=== PATIENT | female | born 1995 | race African-American/Black ===

== ENCOUNTER 2017-04-19 22:21 | Emergency (ER) | payer MEDICAID, OTHER ==
[2017-04-19 22:43] LABS: Bilirubin Negative (Negative); Blood, Urine Negative (Negative); Glucose, Urine (Dipstick) Negative (Negative); Ketone, Urine Negative (Negative); Nitrite Negative (Negative); Protein, Urine (Dipstick) Negative (Neg-Trace)
[2017-04-19 22:44] LABS: Bacteria/HPF Rare-Few HPF (None Seen); Hyaline Casts/LPF 4-6 HYALINE CAST LPF (0-3 Hyaline); RBC/HPF 0-3 HPF (0-3); Squamous Epithelial 0-3 HPF (0-3)
--- NOTE | 2017-04-19 23:45 | ULT ---
LIMITED OB ULTRASOUND: 04/19/17 HISTORY: Vaginal spotting. FINDINGS: A single live intrauterine gestation is seen with measurements corresponding to an estimated gestati onal age of 16 weeks, 4 days and GEOFFREY at 09/30/17. Estimated weight measures 157 grams or 6 oz. BIOMETRY: BPD 3.41 cm 16 weeks, 4 days HC 12.82 cm 16 weeks, 4 days AC 10.57 cm 16 weeks, 4 days FL 2.14 cm 16 weeks, 3 days The cervical length measures 3.7 cm. heart rate measures 147 bpm. Placenta is posteriorly loca caitie without evidence of placenta previa. Amniotic fluid is within normal limits. There is a fibroid versus uterine contraction in the mid uterus. The amnion is not completely fused. IMPRESSION: Single live IUP of 16 weeks, 4 days estimated gestational age and GEOFFREY at 09/30/17. POS: [facility]
== END 2017-04-19 23:43 | disposition home or self-care (01) ==
LOC: ERS 22:21
DX: O20.0 Threatened abortion (principal); O23.42 Unspecified infection of urinary tract in pregnancy, second trimester; O99.342 Other mental disorders complicating pregnancy, second trimester; F41.9 Anxiety disorder, unspecified; Z3A.16 16 weeks gestation of pregnancy
CPT/HCPCS: 76815; 81003; 81015

== ENCOUNTER 2018-12-26 11:03 | Outpatient (CLI) | payer OTHER ==
--- NOTE | 2018-12-26 11:44 | ULT ---
EXAM: Pelvic ultrasound HISTORY: Positive chest. Evaluate dates. COMPARISON: None TECHNIQUE: Multiple grayscale and color Doppler images were obtained in a transabdominal and transvag inal pelvic ultrasound. Spectral analysis of the Doppler waveforms of the ovaries were performed. FINDINGS: UTERUS: There is an intrauterine gestational sac. This has a mean sac diameter of 1.94 cm which estim ates gestational age at 6 weeks 6 days. No yolk sac and pole are visualized at this time. No evidence of subchorionic hemorrhage. No free fluid is seen in the pelvis. RIGHT OVARY: Normal flow without focal mass. LEFT OVARY: Normal flow without focal mass. IMPRESSION: Gestational sac with estimated age of 6 weeks 6 days. Please note that no pole or y olk sac is seen at this time. This could potentially represent a blighted ovum. Correlate with hCG values.
== END 2018-12-26 11:04 | disposition home or self-care (01) ==
LOC: SCSULT 11:03
PROVIDERS: ATTEND Nurse Practitioner
DX: Z34.81 Encounter for supervision of other normal pregnancy, first trimester (principal)
CPT/HCPCS: 76856

== ENCOUNTER 2019-01-05 23:26 | Emergency (ER) | payer OTHER ==
[2019-01-05 23:52] LABS: #Basophils 0.1 thou/uL (0.0-0.2); #Eosinphils 0.1 thou/uL (0.0-0.7); #Lymphocytes 2.9 thou/uL (1.20-3.40); #Monocytes 0.4 thou/uL (0.11-0.59); %Basophils 0.8 % (0.0-1.0); %Eosinophils 0.8 % (0.0-10.0); %Lymphocytes 39.6 % (21.0-51.0); %Monocytes 5.6 % (0.0-10.0); %Neutrophils 53.2 % (42.0-75.0); Hemoglobin 12.3 g/dL (12.0-16.0); Mean Corpuscular HGB CONC 31.8 g/dL (32.0-36.0); Mean Corpuscular Hemoglobin 26.6 pg (27.0-31.0); Mean Corpuscular Volume 83.8 fL (78.0-98.0); Mean Platelet Volume 8.5 fL (7.4-10.4); Platelet Count 245 thou/uL (130-400); RBC Distribution Width 13.4 % (11.5-14.5); Red Blood Cell (RBC) Count 4.63 mill/uL (4.20-5.40); White Blood Cell (WBC) Count 7.4 thou/uL (4.8-10.8)
[2019-01-06] MEDS ORDERED: Acetaminophen 500 MG TAB ONE (01:30)
--- NOTE | 2019-01-06 07:41 | ULT ---
PRELIMINARY REPORT/[facility]/EMERGENCY AFTER HOURS PROCEDURE: EXAM: US First Trimester, Transabdominal and US , Transvaginal EXAM DATE/TIME: 01/06/2019 12:06 AM CLINICAL HISTORY: 23 years old, female; Lmp or gestational age (in weeks): 6w6d; Antepartum complications; Bleeding and other: Heavy bleeding with clots; complicated by abdominal or pelvic pain; Lower; First tr imester; Gestational age or lmp: Lmp 10/23/18; ; Patient HX: Pelvic pain, with heavy vag bleed ing with clots; Additional info: Ob Dr gutiérrez blighted ovum TECHNIQUE: Imaging protocol: Real-time transabdominal obstetrical ultrasound of the maternal pelvis and a first trimester , less than 14 weeks 0 days, with image documentation. Transvaginal imaging was us ed for better evaluation of the fetus and adnexa. COMPARISON: No relevant prior studies available. FINDINGS: There is an apparent intrauterine gestational sac, measuring 28 x 7 x 20 mm. Mean sac diameter of about 18 mm would correspond with gestational age of about 6-1/2 weeks. No definite yolk sac, pole or heart activity identified at this time. These findings are usually seen by 5 1/2 to 6 weeks gestation. Therefore, it is possible/likely that this appearance represents a blighted ovum/anembryonic gestatio n. However, non-viability or blighted ovum/anembryonic gestation cannot be definitively diagnosed on a s judie exam unless the mean gestational sac diameter is 25 mm or greater, without a pole. Therefore, viability cannot definitely be confirmed or excluded at this time. If there is further question of viability, follow up exam in several days could be helpful. An occult ectopic with a pseudo sac in the uterus is felt significantly less likely, althou gh not yet completely excluded. Appropriate clinical follow up is needed. Probable small subchorionic hematoma, measuring 9 x 5 mm. Very small amount of cul-de-sac fluid. Small cyst in the right ovary, measuring about 14 mm, possibly corpus luteum. Blood flow detected in the right ovary. Left ovary not identified at this time. Maternal ovaries/adnexa otherwise appear essentially unremarkable. The urinary bladder was not completely evaluated/imaged at this time. Endovaginal scanning provided better visualization/evaluation of the gestational sac and contents, as discussed above. IMPRESSION: 1. Probable early intrauterine gestational sac, no definite pole identified at this time. See d etails above. 2. Followup may be helpful depending on clinical indications, see above discussion 3. Other details discussed above. Thank you for allowing us to participate in the care of your patient. Dictated and Authenticated by: Nathan Chavez MD 01/06/2019 1:59 AM Central Time ([place] & [place]) FINAL REPORT EMERGENCY AFTER HOURS PELVIC ULTRASOUND: Date: 01/06/19 FINDINGS/IMPRESSION: I agree with the findings and impression given in the preliminary report per [facility] physician. There is likely an early intrauterine gestational sac. No pole or yolk sac is seen at this time, which may be secondary to a very early . A blighted ovum is also a possibility. Recommend followin g HCG levels. POS: [facility]
== END 2019-01-06 02:41 | disposition home or self-care (01) ==
LOC: ERS 23:26
DX: O20.0 Threatened abortion (principal); O99.341 Other mental disorders complicating pregnancy, first trimester; F41.9 Anxiety disorder, unspecified; Z3A.10 10 weeks gestation of pregnancy
CPT/HCPCS: 36415; 76856; 84702; 85025; 86900; 86901

== ENCOUNTER 2019-01-10 00:25 | Emergency (ER) | payer OTHER ==
[2019-01-10 01:23] LABS: #Basophils 0.1 thou/uL (0.0-0.2); #Eosinphils 0.1 thou/uL (0.0-0.7); #Lymphocytes 2.6 thou/uL (1.20-3.40); #Monocytes 0.3 thou/uL (0.11-0.59); #Neutrophils 3.5 thou/uL (1.40-6.50); %Basophils 0.8 % (0.0-1.0); %Eosinophils 1.2 % (0.0-10.0); %Monocytes 4.9 % (0.0-10.0); %Neutrophils 53.1 % (42.0-75.0); Hemoglobin 11.9 g/dL (12.0-16.0); Mean Corpuscular HGB CONC 31.7 g/dL (32.0-36.0); Mean Corpuscular Hemoglobin 26.9 pg (27.0-31.0); Mean Corpuscular Volume 84.6 fL (78.0-98.0); Mean Platelet Volume 8.1 fL (7.4-10.4); Platelet Count 265 thou/uL (130-400); RBC Distribution Width 13.4 % (11.5-14.5); Red Blood Cell (RBC) Count 4.44 mill/uL (4.20-5.40); White Blood Cell (WBC) Count 6.5 thou/uL (4.8-10.8)
[2019-01-10 02:55] LABS: Bilirubin Negative (Negative); Blood, Urine Negative (Negative); Clarity CLEAR (Clear); Glucose, Urine (Dipstick) Negative (Negative); Leukocyte Negative (Negative); Nitrite Negative (Negative); Protein, Urine (Dipstick) Negative (Neg-Trace)
[2019-01-10] MEDS ORDERED: Acetaminophen 325 MG TAB ONE (05:21)
[2019-01-11 16:44] LABS: Chlamydia by PCR Not Detected (NotDetected); GC by PCR Not Detected (NotDetected)
== END 2019-01-10 05:59 | disposition home or self-care (01) ==
LOC: ERS 00:25
DX: O03.4 Incomplete spontaneous abortion without complication (principal); O99.341 Other mental disorders complicating pregnancy, first trimester; Z3A.10 10 weeks gestation of pregnancy
CPT/HCPCS: 36415; 51701; 76856; 81003; 84702; 85025; 86850; 86900; 86901; 87480; 87491; 87510; 87591; 87660; 88233; 88262; 88291; 88305; 96360; 96361; A4353

== ENCOUNTER 2019-02-20 10:16 | Outpatient (CLI) | payer OTHER ==
--- NOTE | 2019-02-20 10:57 | RAD ---
XR Chest Pa Lat STANDARD HISTORY: Complete and partial molar COMPARISON: 04/07/2015 FINDINGS: The heart size is normal. The lungs are well expanded without focal areas of consolidation, pneumothorax or pleural effusions. IMPRESSION: No radiographic evidence of acute cardiopulmonary process.
== END 2019-02-20 10:17 | disposition home or self-care (01) ==
LOC: BICRAD 10:16
PROVIDERS: ATTEND Obstetrics & Gynecology
DX: O01.1 Incomplete and partial hydatidiform mole (principal)
CPT/HCPCS: 71046; 84443; 84702

== ENCOUNTER 2019-11-10 14:18 | Outpatient (CLI) | payer OTHER ==
--- NOTE | 2019-11-10 15:24 | ULT ---
OB ULTRASOUND: 11/10/19 HISTORY: anatomy. FINDINGS: A single live intrauterine gestation is seen with measurements corresponding to an estimated gestatio nal age of 20 weeks, 3 days and GEOFFREY at 03/26/20. The estimated weight measures 354 grams of 13 o unces. measurements are as follows: BPD 4.70cm 20 weeks, 2 days HC 17.13 cm 19 weeks, 6 days AC 14.69 cm 20 weeks, 0 days FL 3.54 cm 21 weeks, 2 days heart rate measures 146 beats per minute. Placenta is posteriorly located without evidence of p lacenta previa. MARYCARMEN measures 12.3 cm. Cervical length measures 4.4 cm. A three vessel cord, cord inse rtion, kidneys, bladder, stomach, four chamber heart, lateral ventricles, cerebellum, spine, li ps/nose, upper and lower extremities are visualized. No definite anomalies are seen. IMPRESSION: Single live IUP of 20 weeks, 3 days estimated gestational age and 03/26/2020. POS: [facility]
== END 2019-11-10 14:19 | disposition home or self-care (01) ==
LOC: BICULT 14:18
PROVIDERS: ATTEND Family Medicine
DX: O09.892 Supervision of other high risk pregnancies, second trimester (principal); Z3A.20 20 weeks gestation of pregnancy
CPT/HCPCS: 76805

== ENCOUNTER 2020-02-15 16:09 | Day surgery (SDC) | payer OTHER ==
[2020-02-15 17:20] VITALS: BMI 41.0
[2020-02-15] MEDS ORDERED: hydrALAZINE 20 MG/ML VIAL SLOW IVP PRN (17:59)
--- NOTE | 2020-02-15 18:02 | PDOC.LDHP ---
Labor and Delivery H&P Chief complaint: contractions HPI: 25 y/o at 34w1d, patient of Dr. Monson, presents with ctx and spotting. She reports that starting at 0500 she started having consistent ctx but has not been timing them. She had an episode of spotting when she wiped first thing this am but resolved. Denies heavy VB, LOF, or decreased FM. ROS neg for HEENT, cv, pulm, gi, gu, neuro, psych, skin, musculoskeletal or constitutional symptoms other than mentioned above. OB History Details: 4 prior TSVD Current complications: none Past Medical History: None Current medications: pre- vitamins Previous surgical history: none Allergies/Adverse Reactions: Allergies Allergy/AdvReac Type Severity Reaction Status Date / Time No Known Allergies Allergy Unverified 02/15/20 17:13 Social history: none - Physical Exam Vital signs reviewed and normal: yes General: NAD, resting Lungs: nonlabored breathing Abdomen: gravid Extremeties: no edema FHT: category 1 (130s, mod variability, + accels, subtle late decels when first on monitor - improved with repositioning.) Rowe contractions every: irregular - Vaginal Exam cm dilated: 0 (Unchanged after 3 hours on monitor) Effacement: 0% Station: -3 - Assessment 25 y/o at 34w1d with no e/o PTL. No bleeding on exam. status reassuring with reactive NST. - Plan -: D/c home with precautions. Given 1 dose morphine for pain to help relax at home. Advised to stay hydrated and keep all appointments.
[2020-02-15] MEDS ORDERED: Morphine 4 MG/ML VIAL IM SCH (19:15)
== END 2020-02-15 19:20 | disposition home health service (06) ==
LOC: L&D/OP 16:09 → L&D 16:11 → L&D/OP 19:20
PROVIDERS: ATTEND Family Medicine
DX: O47.03 False labor before 37 completed weeks of gestation, third trimester (principal); O26.853 Spotting complicating pregnancy, third trimester; Z3A.34 34 weeks gestation of pregnancy
CPT/HCPCS: 96372; 99283; J2270

== ENCOUNTER 2020-03-11 22:53 | Inpatient (IN) | payer OTHER ==
[2020-03-11 23:40] VITALS: BMI 42.3
[2020-03-11] MEDS: Lactated Ringer's 1,000 ML IV SCH (23:45)
[2020-03-12] MEDS ORDERED: HYDROcodone/Acetaminophen 5/325 mg Tablet PO PRN ×2 (00:08)
[2020-03-12] MEDS ORDERED: Ondansetron PF 4 MG/2 ML Vial IVP PRN ×4 (00:08→06:32)
[2020-03-12] MEDS ORDERED: Lactated Ringer's 1,000 ML IV SCH (00:08)
[2020-03-12] MEDS ORDERED: hydrALAZINE 20 MG/ML VIAL SLOW IVP PRN ×2 (00:08→06:32)
[2020-03-12] MEDS ORDERED: NS / Oxytocin 40 units/1000ml 1,000 ML IV PRN (00:08)
[2020-03-12] MEDS ORDERED: Lidocaine 1% (PF) 30 ML VIAL SC PRN (00:08)
[2020-03-12] MEDS ORDERED: Butorphanol Tartrate 1 MG/ML VIAL SLOW IVP PRN (00:08)
[2020-03-12] MEDS ORDERED: Promethazine HCl 25 MG/ML VIAL IM PRN ×4 (00:08→06:32)
[2020-03-12] MEDS ORDERED: NS w/ Oxytocin 10 units 500 ML IV SCH (00:08)
[2020-03-12] MEDS ORDERED: Ibuprofen 800 MG TAB PO PRN (00:08)
[2020-03-12 00:16] LABS: Hemoglobin 10.9 g/dL (12.0-16.0); Mean Corpuscular HGB CONC 32.3 g/dL (32.0-36.0); Mean Corpuscular Hemoglobin 24.3 pg (27.0-31.0); Mean Corpuscular Volume 75.3 fL (78.0-98.0); Mean Platelet Volume 9.3 fL (7.4-10.4); Platelet Count 327 thou/uL (130-400); RBC Distribution Width 15.5 % (11.5-14.5); White Blood Cell (WBC) Count 13.5 thou/uL (4.8-10.8)
[2020-03-12] MEDS ORDERED: Fentanyl 4 mcg/Bup 0.1% Cadd 100 ML ONE (00:29)
[2020-03-12] MEDS ORDERED: Penicillin G Potassium 5 MILL.UNITS VIAL ONE (00:30)
[2020-03-12 00:56] LABS: HBSAg Index 0.16 S/CO (0-0.99); Hep B Surf Ag Non-Reactive S/CO (NonReactive); Syphilis Antibody Nonreactive (Nonreactive); Syphilis Antibody Index 0.03 S/CO (<1.00 Non-Reactive)
[2020-03-12] MEDS ORDERED: Acetaminophen 325 MG TAB PO PRN (01:14)
[2020-03-12] MEDS ORDERED: diphenhydrAMINE 50 MG/ML VIAL IVP PRN ×2 (01:14→04:38)
[2020-03-12] MEDS ORDERED: Lactated Ringer's 500 ML IV PRN (01:14)
[2020-03-12] MEDS ORDERED: EPHEDRINE 25 MG/5 ML SYRINGE SLOW IVP PRN (01:14)
[2020-03-12] MEDS ORDERED: Naloxone HCl 0.4 mg/ml Vial IVP PRN ×4 (01:14→04:38)
[2020-03-12] MEDS ORDERED: Fentanyl 4 mcg/Bupivacaine 0.1% Cassette 100 ML EPIDURAL SCH (01:15)
[2020-03-12] MEDS ORDERED: Communication Order-Pharmacy FS SCH ×2 (01:15→04:45)
[2020-03-12] MEDS ORDERED: Bicitra 30 ML UDCUP ONE (02:49)
[2020-03-12] MEDS ORDERED: Ondansetron PF 4 MG/2 ML Vial ONE (02:55)
[2020-03-12] MEDS ORDERED: EPHEDRINE 25 MG/5 ML SYRINGE ONE (02:55)
[2020-03-12] MEDS ORDERED: PHENYLEPHRINE-NS 100 MCG/ML 10 ML SYRINGE ONE ×2 (02:55→03:55)
[2020-03-12] MEDS ORDERED: MORPHINE 5 MG/10 ML PF VIAL ONE (02:55)
[2020-03-12] MEDS ORDERED: Oxytocin 10 UNITS/ML VIAL ONE ×2 (02:55→03:50)
[2020-03-12] MEDS ORDERED: Azithromycin 500 MG VIAL ONE (03:01)
[2020-03-12] MEDS ORDERED: Bupivacaine 0.5% 10 ML VIAL ONE (03:15)
[2020-03-12] MEDS ORDERED: Azithromycin 500 MG in Sodium Chloride 0.9% 250 ML 250 ML IVPB SCH (03:15)
[2020-03-12] MEDS ORDERED: Lidocaine 2% 10 ML INJ ONE (03:15)
[2020-03-12] MEDS ORDERED: Bicitra 30 ML UDCUP PO SCH (03:15)
[2020-03-12] MEDS ORDERED: CEFAZOLIN 2 GM in Premix Bag 1 BAG IVPB SCH (03:15)
[2020-03-12 04:09] LABS: Actual Bicarbonate (HCO3v) 25 mEq/L (22-28); Analyzer IN Cardio OR; Base Excess -5.1 mEq/L (-2.0 to +3.0); Base Excess (BEa) -4.9 mEq/L (-2.0 to +3.0)
[2020-03-12 04:10] LABS: pH (Cord, venous) 7.15 (7.32-7.43)
[2020-03-12 04:11] LABS: Actual Bicarbonate (HCO3a) 26.7 mEq/L (22-28)
[2020-03-12] MEDS ORDERED: Ondansetron HCl/PF 4 MG/2 ML Vial IVP PRN (04:38)
[2020-03-12] MEDS ORDERED: L&D-Morphine 4 MG/ML VIAL SLOW IVP PRN (04:38)
[2020-03-12] MEDS ORDERED: Ketorolac Tromethamine 30 MG/ML VIAL IVP PRN (04:38)
[2020-03-12] MEDS ORDERED: Naloxone HCl 0.4 mg/ml Vial IV PRN (04:38)
[2020-03-12] MEDS ORDERED: HYDROmorphone 2 MG/ML VIAL SLOW IVP PRN (04:38)
[2020-03-12] MEDS ORDERED: Promethazine HCl 25 MG SUPP PR PRN (04:38)
[2020-03-12] MEDS ORDERED: Meperidine HCl/PF 25 MG/ML VIAL SLOW IVP PRN (04:38)
[2020-03-12] MEDS ORDERED: Ketorolac Tromethamine 30 MG/ML VIAL IVP SCH (04:45)
--- NOTE | 2020-03-12 05:18 | OP ---
DATE OF PROCEDURE: 03/12/2020 RESIDENT SURGEON: Melva Golden MD, PGY-2. ATTENDING SURGEON: Davian Monson MD PROCEDURE PERFORMED: Primary low transverse section. PREOPERATIVE DIAGNOSES: 1. Term intrauterine . 2. Premature rupture of membranes. 3. Breech presentation. POSTOPERATIVE DIAGNOSES: 1. Term intrauterine , delivered. 2. Premature rupture of membranes. 3. Breech presentation. ANESTHESIA: Spinal. COMPLICATIONS: None. QUANTITATIVE BLOOD LOSS: 700 mL. SPECIMENS: Cord blood sent to lab for blood type. Venous and arterial blood gas sent to lab. FINDINGS: Grossly normal female with Apgars of 5 and 8 at 1 and 5 minutes of life, respectively. Resuscitation with CPAP for 5 minutes required. Grossly normal placenta with 3-vessel cord, discarded. DRAINS: Haq to gravity draining clear urine. INDICATIONS FOR PROCEDURE: The patient is a 25-year-old G7, P4-0-2-4 female at 38.0 weeks' gestation, who presented to Labor and Delivery with premature rupture of membranes. The was found to be in breech presentation. PROCEDURE IN DETAIL: After risks, benefits, and alternatives were explained to the patient, she gave informed consent. Preoperative antibiotics included cefazolin 2 g IV and azithromycin 500 mg IV. The patient was taken to the operating room and spinal anesthesia was initiated. She was placed in the supine position with a leftward tilt and prepped and draped in the usual sterile fashion. A Pfannenstiel incision was made with a scalpel and carried down to the level of the fascia, which was sharply nicked. The fascial cut was extended bilaterally with Martinez scissors. The inferior and superior edges of the cut fascial edges were elevated with Eric clamps and the underlying rectus muscles were sharply and bluntly dissected free. The recti were divided digitally and retracted manually. The peritoneum was entered bluntly and retracted manually. Bladder blade was placed. A low transverse incision was made with a scalpel, and the uterus was entered in the midline bluntly. The hysterotomy was extended manually. The was noted to be in a breech presentation. The hips were delivered followed by the legs, then the arms, and finally the head without fundal pressure. No nuchal or body cord noted. time noted to be at 03:41. Mouth and nares were bulb suctioned. Cord clamped and cut; cord gases were then obtained. Grossly normal female infant was handed to the team at the banner. Cord blood and cord gases were obtained. Placenta was extracted with cord traction and fundal pressure. Placenta was found to be intact with 3-vessel cord and discarded. The uterus was externalized, and the endometrium was curetted with a dry lap. The bladder blade was replaced and the uterus was closed with a running locking #1 Monocryl suture. Hemostasis was noted. Small bleeders were cauterized on the uterus. Hemostasis was again noted. Seprafilm for hemostasis was placed on the uterus and padded down with water. The abdomen was irrigated with saline and suctioned free of clots. The uterus was internalized, and the hysterotomy was again noted to be hemostatic. The peritoneum was closed in a running fashion with 3-0 Vicryl suture. The fascia was closed with a running 0-PDS suture in a nonlocking fashion with the exception of locking the first stitch. The subcutaneous tissue was irrigated, and there were no bleeders. The subcutaneous space was closed with interrupted 3-0 Vicryl sutures. The skin was approximated with neil, and a pressure dressing was placed. All counts were correct. The patient tolerated the procedure well and was taken to the recovery room in stable condition. Job ID: [id number] [facility]
[2020-03-12] MEDS ORDERED: Ketorolac Tromethamine 30 MG/ML VIAL ONE (05:25)
[2020-03-12] MEDS ORDERED: Meperidine HCl/PF 25 MG/ML VIAL ONE (06:08)
[2020-03-12] MEDS ORDERED: Bisacodyl 10 MG SUPP PR PRN (06:32)
[2020-03-12] MEDS ORDERED: Adacel (T-DAP) 0.5 ML SYRINGE IM ONE (06:32)
[2020-03-12] MEDS ORDERED: Lanolin Ointment 7 GM TUBE TOP PRN (06:32)
[2020-03-12] MEDS: Lactated Ringer's 1,000 ML IV SCH (06:32)
[2020-03-12] MEDS ORDERED: Meperidine HCl/PF 25 MG/ML VIAL IM PRN (06:32)
--- NOTE | 2020-03-12 07:56 | ULT ---
PRELIMINARY REPORT/[facility]/EMERGENCY AFTER HOURS PROCEDURE EXAM: US Obstetrical, Complete >14 weeks. CLINICAL HISTORY: EVAL POSITION. SEE NOTES ON LAST IMAGE. NURSE AT BEDSIDE NOTIFIED OF BREECH POSITION. THANKS TECHNIQUE: Transabdominal imaging of the maternal pelvis and a > 14 week gestation with image documentation. COMPARISON: None provided. FINDINGS: FETUS: There is a single living intrauterine gestation, estimated gestational age 35 weeks 0 days POSITION: position is breech. HEART RATE: The heart rate is 147 beats per minute. BIOMETRICS: Based on composite biometry, the estimated gestational age by ultrasound is 35 weeks 0 days cor responding to a new date of 04/16/2020. The estimated weight is 2675 g ANATOMIC SURVEY: The visualized anatomy is unremarkable. PLACENTA: The placenta is located fundal. No sonographic evidence for previa or abruption. AMNIOTIC FLUID: None seen. CERVIX: Closed. Unremarkable as visualized. IMPRESSION: Single viable intrauterine . Breech presentation. No amniotic fluid is noted. ELECTRONICALLY SIGNED BY: Jarrod Almodovar MD Mar 12, 2020 4:03:20 AM CDT This report is intended for review by the ordering physician only, in accordance of law. If you recei ve this report in error, please call [facility] at [phone]. FINAL REPORT Exam: Limited OB ultrasound HISTORY: Evaluate position. Comparison none TECHNIQUE: Transabdominal imaging of the gravid uterus is performed FINDINGS: Fetus: Piedra fetus Presentation: Breech heart tones: 147 beats per minutes biometry: Average age by sonography is 35 weeks 0 days. Estimated weight is 2675 g. BPD 8.66 cm, 35 weeks 0 days Head circumference 30.71 cm, 34 weeks 2 days Abdominal circumference 32.46 cm, 36 weeks 3 days Femur length 6.64 cm, 34 weeks 1 day IMPRESSION: 1. This report is in agreement with initial report by [facility]. 2. Single intrauterine gestation. Breech presentation. Transcribed Date/Time: 03/12/2020 10:00 AM
[2020-03-12] MEDS: Docusate Calcium (SURFAK) 240 MG CAP PO SCH ×2 (09:56→21:11)
[2020-03-12] MEDS: Prenatal Vitamin 1 TAB PO SCH (09:56)
[2020-03-12] MEDS: Ferrous Sulfate 325 MG TAB PO SCH ×2 (09:56→21:12)
[2020-03-12] MEDS: Ketorolac Tromethamine 30 MG/ML VIAL IVP SCH ×2 (12:24→17:51)
[2020-03-12 16:05] LABS: SARS-CoV-2 MS2 Positive; SARS-CoV-2 N Gene Negative; SARS-CoV-2 S Gene Negative; SARS-CoV-2 by NAA Not Detected (NotDetected); SARS-CoV-2 orf1ab Negative
[2020-03-12] MEDS: Simethicone Chewable 80 MG TAB PO PRN (21:11)
[2020-03-12] MEDS: HYDROcodone/Acetaminophen 5/325 mg Tablet PO PRN (21:15)
[2020-03-13] MEDS: Ketorolac Tromethamine 30 MG/ML VIAL IVP SCH (00:32)
[2020-03-13] MEDS: Simethicone Chewable 80 MG TAB PO PRN ×2 (00:32→05:33)
[2020-03-13] MEDS: HYDROcodone/Acetaminophen 5/325 mg Tablet PO PRN ×4 (05:34→19:28)
[2020-03-13 06:07] LABS: Hemoglobin 9.8 g/dL (12.0-16.0); Mean Corpuscular HGB CONC 31.9 g/dL (32.0-36.0); Mean Corpuscular Hemoglobin 24.5 pg (27.0-31.0); Mean Corpuscular Volume 76.7 fL (78.0-98.0); Mean Platelet Volume 8.6 fL (7.4-10.4); Platelet Count 269 thou/uL (130-400); RBC Distribution Width 15.3 % (11.5-14.5); Red Blood Cell (RBC) Count 3.99 mill/uL (4.20-5.40); White Blood Cell (WBC) Count 12.4 thou/uL (4.8-10.8)
[2020-03-13] MEDS: Ibuprofen 800 MG TAB PO SCH ×4 (06:08→22:21)
[2020-03-13] MEDS: Prenatal Vitamin 1 TAB PO SCH (08:47)
[2020-03-13] MEDS: Ferrous Sulfate 325 MG TAB PO SCH ×2 (08:48→19:28)
[2020-03-13] MEDS: Docusate Calcium (SURFAK) 240 MG CAP PO SCH ×2 (08:49→19:27)
[2020-03-14] MEDS: Ibuprofen 800 MG TAB PO SCH ×4 (06:30→21:45)
[2020-03-14] MEDS: Docusate Calcium (SURFAK) 240 MG CAP PO SCH ×2 (08:16→21:45)
[2020-03-14] MEDS: Ferrous Sulfate 325 MG TAB PO SCH ×2 (08:16→21:45)
[2020-03-14] MEDS: Prenatal Vitamin 1 TAB PO SCH (08:16)
[2020-03-14] MEDS: HYDROcodone/Acetaminophen 5/325 mg Tablet PO PRN ×4 (08:17→20:30)
[2020-03-14] MEDS: Simethicone Chewable 80 MG TAB PO PRN (12:04)
[2020-03-15] MEDS: HYDROcodone/Acetaminophen 5/325 mg Tablet PO PRN (00:43)
[2020-03-15] MEDS: Ibuprofen 800 MG TAB PO SCH ×2 (06:36→22:08)
[2020-03-15] MEDS: cloNIDine 0.1 MG TAB PO PRN (08:19)
[2020-03-15] MEDS ORDERED: Magnesium Sulfate 20 gm/500 ml 20 GM/500 ML BAG ONE (08:34)
[2020-03-15] MEDS ORDERED: Magnesium Sulfate 20 GM/WATER 500 ML BAG IVPB SCH (09:13)
[2020-03-15] MEDS ORDERED: Calcium Gluconate 4.6 MEQ in Sodium Chloride 0.9% 100 ML IVPB PRN (09:13)
[2020-03-15] MEDS ORDERED: Magnesium Sulfate 20 gm/500 ml 20 GM/500 ML BAG IVPB SCH (09:13)
[2020-03-15] MEDS ORDERED: hydrALAZINE 20 MG/ML VIAL SLOW IVP PRN (09:13)
[2020-03-15] MEDS: Docusate Calcium (SURFAK) 240 MG CAP PO SCH ×2 (10:42→22:08)
[2020-03-15] MEDS: Prenatal Vitamin 1 TAB PO SCH (10:44)
[2020-03-15] MEDS: Ferrous Sulfate 325 MG TAB PO SCH (10:44)
[2020-03-15] MEDS: Lactated Ringer's 1,000 ML IV SCH (22:09)
[2020-03-16] MEDS: Ibuprofen 800 MG TAB PO SCH ×4 (05:55→21:16)
[2020-03-16] MEDS: Prenatal Vitamin 1 TAB PO SCH (08:57)
[2020-03-16] MEDS: Docusate Calcium (SURFAK) 240 MG CAP PO SCH ×2 (08:58→21:16)
[2020-03-16] MEDS: Ferrous Sulfate 325 MG TAB PO SCH ×3 (08:58→21:15)
[2020-03-16] MEDS: Lactated Ringer's 1,000 ML IV SCH ×2 (11:47→13:36)
[2020-03-16] MEDS: HYDROcodone/Acetaminophen 5/325 mg Tablet PO PRN (15:58)
[2020-03-17] MEDS: Lactated Ringer's 1,000 ML IV SCH (03:40)
[2020-03-17] MEDS: HYDROcodone/Acetaminophen 5/325 mg Tablet PO PRN (03:40)
[2020-03-17] MEDS: Ibuprofen 800 MG TAB PO SCH (04:16)
[2020-03-17] MEDS: cloNIDine 0.1 MG TAB PO PRN (04:16)
[2020-03-17] MEDS: Ferrous Sulfate 325 MG TAB PO SCH (08:13)
[2020-03-17] MEDS: Docusate Calcium (SURFAK) 240 MG CAP PO SCH (08:13)
[2020-03-17] MEDS: Prenatal Vitamin 1 TAB PO SCH (08:13)
[2020-03-17 08:16] VITALS: BP 146/72; TEMP 98.1
== END 2020-03-17 10:30 | disposition home or self-care (01) | DRG 788 ==
LOC: L&D/OP 22:53 → L&D 03-12 00:08 → 3SW 03-12 08:23 → L&D 03-15 09:48 → 3SW 03-16 10:55
PROVIDERS: ADMIT Family Medicine; ATTEND Family Medicine
PROC: 10D00Z1 Extraction of Products of Conception, Low, Open Approach (ICD-10-PCS; principal; 2020-03-12)
PROC: 3E0P05Z Introduction of Adhesion Barrier into Female Reproductive, Open Approach (ICD-10-PCS; 2020-03-12)
DX: O32.1XX0 Maternal care for breech presentation, not applicable or unspecified (principal); Z20.828 Contact with and (suspected) exposure to other viral communicable diseases; Z3A.37 37 weeks gestation of pregnancy; Z37.0 Single live birth; O42.92 Full-term premature rupture of membranes, unspecified as to length of time between rupture and onset of labor; O14.15 Severe pre-eclampsia, complicating the puerperium
CPT/HCPCS: 36415; 51702; 76815; 82805; 83735; 85027; 86780; 86850; 86900; 86901; 87340; 87635; 99285; J0456; J0690; J1885; J2175; J2274; J2405; J2540; J2590; J3475; J3490; U0003

== ENCOUNTER 2020-08-09 23:35 | Emergency (ER) | payer OTHER ==
[2020-08-10] MEDS ORDERED: diphenhydrAMINE 50 MG CAP ONE (00:04)
[2020-08-10] MEDS ORDERED: Famotidine 20 MG TAB ONE (00:04)
[2020-08-10] MEDS ORDERED: predniSONE 20 MG TAB ONE (00:04)
--- NOTE | 2020-08-10 07:41 | RAD ---
CHEST 1 VIEW: INDICATION: Shortness of breath, chest pain. COMPARISON: Prior exam dated 12/21/2015. FINDINGS: Lungs are clear. Heart size is normal. No pleural effusion is pneumothorax is evident. No acute os seous abnormality is evident. IMPRESSION: No acute cardiopulmonary abnormality is evident. POS: [facility]
== END 2020-08-10 01:00 | disposition home or self-care (01) ==
LOC: ERS 23:35
DX: R07.89 Other chest pain (principal); L50.1 Idiopathic urticaria
CPT/HCPCS: 71045; 93005; J7512